=== PATIENT | female | born 1990 ===

== ENCOUNTER 2019-06-25 13:42 | Emergency (ER) | payer OTHER ==
[2019-06-25 13:53] VITALS: BP 135/86
--- NOTE | 2019-06-25 15:56 | UC ---
Complaint Female HPI - HPI Summary HPI Summary: 28-year-old female presents with complaints of urinary symptoms for the past 7 days. Patient states that she initially was having burning with urination and some urinary frequency. She increased her fluid intake and symptoms did improve some with the next 3 days however never fully resolved. Yesterday she started noting some left mid to lower back pain which she describes as a constant ache. Nonradiating. No alleviating or aggravating factors. Today started with some general malaise, body aches, and chills. He is currently having her menses. Denies fever, abdominal pain, nausea, vomiting, urgency, vaginal discharge, or dyspareunia. - History Of Current Complaint Chief Complaint: UCGU Stated Complaint: URINARY,BODY ACHES Time Seen by Provider: 06/25/19 15:20 Hx Obtained From: Patient Hx Last Menstrual Period: just finishing Pain Intensity: 4 - Allergies/Home Medications Allergies/Adverse Reactions: Allergies Allergy/AdvReac Type Severity Reaction Status Date / Time No Known Allergies Allergy Verified 06/25/19 13:53 Home Medications: Home Medications Copper (Iud) [Paragard IUD] 1 unit IU 06/25/19 [History] Dextroamphetamine/Amphetamine [Adderall 10 mg-] 1 tab PO BID 06/25/19 [History Confirmed 06/25/19] Ibuprofen TAB* [Advil TAB*] 400 mg PO Q6H PRN 06/25/19 [History Confirmed ] Sertraline* [Zoloft*] 50 mg PO DAILY 06/25/19 [History Confirmed 06/25/19] PMH/Surg Hx/FS Hx/Imm Hx Previously Healthy: Yes Psychological History: Depression, Other - ADHD - Surgical History Surgical History: Yes Surgery Procedure, Year, and Place: appendectomy - Family History Known Family History: Positive: Non-Contributory - Social History Lives: Alone Alcohol Use: Weekly Substance Use Type: None Smoking Status (MU): Never Smoked Tobacco Review of Systems All Other Systems Reviewed And Are Negative: Yes Constitutional: Positive: Chills. Negative: Fever Skin: Negative: Rash Respiratory: Positive: Negative Cardiovascular: Positive: Negative Gastrointestinal: Negative: Abdominal Pain, Vomiting, Diarrhea, Nausea Genitourinary: Positive: Dysuria, Frequency. Negative: Urgency, Vaginal/Penile Discharge Musculoskeletal: Positive: Negative Neurological: Positive: Negative Is Patient Immunocompromised?: No Physical Exam - Summary Physical Exam Summary: GENERAL APPEARANCE: Well developed, well nourished, alert and cooperative, and appears to be in no acute distress. CARDIAC: Normal S1 and S2. No S3, S4 or murmurs. Rhythm is regular. There is no peripheral edema, cyanosis or pallor. Extremities are warm and well perfused. Capillary refill is less than 2 seconds. Peripheral pulses intact. LUNGS: Clear to auscultation without rales, rhonchi, wheezing or diminished breath sounds. ABDOMEN: Positive bowel sounds. Soft, nondistended, nontender. No guarding or rebound. No masses or hepatosplenomegally. Mild left CVA tenderness. MUSKULOSKELETAL: ROM intact to all extremities. No joint erythema or tenderness. Normal muscular development. Normal gait. SKIN: Skin normal color, texture and turgor with no lesions or eruptions. Triage Information Reviewed: Yes Vital Signs: Initial Vital Signs Temp 99.8 F 06/25/19 13:48 Pulse 94 06/25/19 13:48 Resp 16 06/25/19 13:48 BP 135/86 06/25/19 13:48 Pulse Ox 100 06/25/19 13:48 Vital Signs Reviewed: Yes Complaint Female Dx - Course Course Of Treatment: 28-year-old female presents with complaints of urinary symptoms for the past 7 days. Patient states that she initially was having burning with urination and some urinary frequency. She increased her fluid intake and symptoms did improve some with the next 3 days however never fully resolved. Yesterday she started noting some left mid to lower back pain which she describes as a constant ache. Nonradiating. No alleviating or aggravating factors. Today started with some general malaise, body aches, and chills. He is currently having her menses. Denies fever, abdominal pain, nausea, vomiting, urgency, vaginal discharge, or dyspareunia. Afebrile. Vital signs stable. Patient had some mild left CVA tenderness and otherwise unremarkable exam. [id number] urinalysis showed 3+ leukocyte esterase, 3+ blood, positive nitrites, and 1+ protein. Reviewed results with the patient. We discussed that based on the UA results and her symptoms and concerned that she may have a urinary tract infection with an early pyelonephritis. We'll treat her with ciprofloxacin 500 mg twice a day 7 days. She is to follow-up with her primary care provider in 3 days if symptoms are not improving. Anticipatory guidance and warning symptoms were reviewed with the patient. Verbalizes understanding and agrees with plan of care. - Differential Dx/Diagnosis Differential Diagnosis/HQI/PQRI: Renal Colic, Sexually Transmitted Disease, Urinary Tract Infection Provider Diagnosis: Pyelonephritis Discharge ED - Sign-Out/Discharge Documenting (check all that apply): Patient Departure All imaging exams completed and their final reports reviewed: No Studies - Discharge Plan Condition: Stable Disposition: HOME Prescriptions: Ciprofloxacin HCl 500 mg PO BID #14 tablet Patient Education Materials: Kidney Infection (ED) Referrals: No Primary Care Phys,NOPCP [Primary Care Provider] - Additional Instructions: Your urine test in the clinic today is suggestive of a urinary tract infection, likely an infection of the kidney. We will start you on an antibiotic to treat for the infection. We will also send a urine culture today to see what bacteria grow out and make sure the antibiotic you were prescribed is appropriate to treat the infection. It will take 48-72 hours to get these results. We will contact you if there is any change in your treatment plan. Start ciprofloxacin 500 mg 1 tab twice a day for 7 days. Drink plenty of fluids. To help prevent urinary tract infections: 1) Be sure to wipe from front to back. 2) Urinate immediately after any sexual intercourse. 3) Avoid taking bubble baths. Follow up with your primary care provider in 3 days if symptoms persist. Seek immediate medical attention in the emergency room if you develop fever greater than 100.5 F, have severe abdominal pain, persistent vomiting, or any worsening of symptoms. - Billing Disposition and Condition Condition: STABLE Disposition: Home
== END 2019-06-25 16:20 | disposition home or self-care (01) ==
LOC: UCEAST 13:42
DX: N12 Tubulo-interstitial nephritis, not specified as acute or chronic (principal); F32.9 Major depressive disorder, single episode, unspecified; F90.9 Attention-deficit hyperactivity disorder, unspecified type; Z79.899 Other long term (current) drug therapy
CPT/HCPCS: 81003; 87077; 87086; 87186; 99212; G0463